=== PATIENT | female | born 1970 | race Hispanic/Latino ===

== ENCOUNTER 2022-02-24 16:05 | Outpatient (RCR) | payer BC | END 2022-03-17 | LOC: RESP 16:05 | PROVIDERS: ATTEND Internal Medicine Critical Care Medicine | DX: I27.20 Pulmonary hypertension, unspecified (principal) | CPT/HCPCS: 94626 ×4; G0238 ×4 ==

== ENCOUNTER 2022-03-19 15:29 | Outpatient (RCR) | payer BC | END 2022-04-16 | LOC: RESP 15:29 | PROVIDERS: ATTEND Internal Medicine Critical Care Medicine | DX: I27.20 Pulmonary hypertension, unspecified (principal) | CPT/HCPCS: 94626 ×4; G0238 ×4 ==

== ENCOUNTER 2022-04-17 | Outpatient (RCR) | payer BC | END 2022-05-17 | LOC: RESP | PROVIDERS: ATTEND Internal Medicine Critical Care Medicine | DX: I27.20 Pulmonary hypertension, unspecified (principal) | CPT/HCPCS: 94626 ×7; G0238 ×7 ==

== ENCOUNTER 2022-05-21 13:18 | Outpatient (RCR) | payer BC | END 2022-06-17 | LOC: RESP 13:18 | PROVIDERS: ATTEND Internal Medicine Critical Care Medicine | DX: I27.20 Pulmonary hypertension, unspecified (principal) | CPT/HCPCS: 94626 ×2; G0238 ×2 ==

== ENCOUNTER 2022-06-18 10:23 | Outpatient (RCR) | payer BC | END 2022-07-15 | LOC: RESP 10:23 | PROVIDERS: ATTEND Internal Medicine Critical Care Medicine | DX: I27.20 Pulmonary hypertension, unspecified (principal) | CPT/HCPCS: 94626 ×3; G0238 ×3 ==

== ENCOUNTER 2022-07-21 17:08 | Outpatient (RCR) | payer BC | END 2022-08-15 | LOC: RESP 17:08 | PROVIDERS: ATTEND Internal Medicine Critical Care Medicine | DX: I27.20 Pulmonary hypertension, unspecified (principal) | CPT/HCPCS: 94626 ×6; G0238 ×6 ==

== ENCOUNTER 2022-08-20 17:09 | Outpatient (RCR) | payer BC | END 2022-09-14 | LOC: RESP 17:09 | PROVIDERS: ATTEND Internal Medicine Critical Care Medicine | DX: I27.20 Pulmonary hypertension, unspecified (principal) | CPT/HCPCS: 94626 ×4; G0238 ×4 ==

== ENCOUNTER 2023-02-16 11:57 | Outpatient (RCR) | payer BC | END 2023-03-17 | LOC: RESP 11:57 | PROVIDERS: ATTEND Internal Medicine Critical Care Medicine | DX: I27.20 Pulmonary hypertension, unspecified (principal) | CPT/HCPCS: 94626 ×5; G0238 ×5 ==

== ENCOUNTER 2023-03-18 14:44 | Outpatient (RCR) | payer BC | END 2023-04-16 | LOC: RESP 14:44 | PROVIDERS: ATTEND Internal Medicine Critical Care Medicine | DX: I27.20 Pulmonary hypertension, unspecified (principal) | CPT/HCPCS: 94626 ×4; G0238 ×4 ==

== ENCOUNTER 2023-08-18 12:46 | Outpatient (RCR) | payer BC | END 2023-09-15 | LOC: RESP 12:46 | PROVIDERS: ATTEND Internal Medicine Critical Care Medicine | DX: I27.20 Pulmonary hypertension, unspecified (principal) | CPT/HCPCS: 94626 ×2; G0238 ×2 ==

== ENCOUNTER 2023-10-19 13:31 | Outpatient (RCR) | payer BC | END 2023-11-15 | LOC: RESP 13:31 | PROVIDERS: ATTEND Nurse Practitioner Family | DX: I27.20 Pulmonary hypertension, unspecified (principal) ==

== ENCOUNTER 2023-11-16 14:08 | Outpatient (RCR) | payer BC | END 2023-12-16 | LOC: RESP 14:08 | PROVIDERS: ATTEND Nurse Practitioner Family | DX: I27.20 Pulmonary hypertension, unspecified (principal) ==

== ENCOUNTER 2024-01-11 15:00 | Outpatient (RCR) | payer BC | END 2024-01-16 | LOC: RESP 15:00 | PROVIDERS: ATTEND Nurse Practitioner Family | DX: I27.20 Pulmonary hypertension, unspecified (principal) | CPT/HCPCS: 94626 ×3; G0238 ×3 ==

== ENCOUNTER 2024-02-08 15:00 | Outpatient (RCR) | payer BC | END 2024-02-15 | LOC: RESP 15:00 | PROVIDERS: ATTEND Internal Medicine Critical Care Medicine | DX: I27.20 Pulmonary hypertension, unspecified (principal) | CPT/HCPCS: 94626 ×4; G0238 ×4 ==

== ENCOUNTER 2024-02-24 15:00 | Outpatient (RCR) | payer BC | END 2024-03-17 | LOC: RESP 15:00 | PROVIDERS: ATTEND Internal Medicine Critical Care Medicine | DX: I27.20 Pulmonary hypertension, unspecified (principal) | CPT/HCPCS: 94626 ×2; G0238 ×2 ==